=== PATIENT | female | born 2000 | race Caucasian/White ===

== ENCOUNTER → 2021-11-05 10:51 | Outpatient (BNVA) | payer OTHER, SELFPAY | PROVIDERS: PCP Physical Medicine & Rehabilitation; Visit Provider Internal Medicine | DX: Z13.89 Encounter for screening for other disorder (principal) ==

== ENCOUNTER 2021-12-19 06:04 | Outpatient (REF) | payer OTHER, SELFPAY ==
--- NOTE | ~2021-12-19 | FL_ITS ---
EXAMINATION: XR FLUOROSCOPY WITH IMAGES CLINICAL INFORMATION: M47.812 - Spondylosis without myelopathy or radiculopathy COMPARISON: None. TECHNIQUE: Fluoroscopy performed by Dr. Dhruv Moreno. Fluoroscopy time: 0.7 minutes DAP: 0.366 Gycm2 Images: 2 FINDINGS: There are spinal needles overlying the left lateral masses cervical spine approximately C3, C4, C5. There is contrast in the paraspinal soft tissues and nerve sheaths. No visible vascular communication. FL/FL guidance in treatment room IMPRESSION: Fluoroscopy for pain management procedure.
== END 2021-12-19 06:05 | disposition home or self-care (01) ==
LOC: HO.RADIR 06:04
PROVIDERS: Visit Provider Internal Medicine
DX: M47.812 Spondylosis without myelopathy or radiculopathy, cervical region (principal)
CPT/HCPCS: 64490; 64491; J2795; Q9967

== ENCOUNTER → 2021-12-24 08:21 | Outpatient (BNVA) | payer OTHER, SELFPAY | PROVIDERS: PCP Physical Medicine & Rehabilitation; Visit Provider Internal Medicine | DX: Z13.89 Encounter for screening for other disorder (principal) ==

== ENCOUNTER 2022-03-06 10:11 | Day surgery (SDC) | payer MEDICAID, SELFPAY ==
--- NOTE | ~2022-03-06 | FL_ITS ---
EXAMINATION: XR FLUOROSCOPY WITH IMAGES CLINICAL INFORMATION: Facet joint injection COMPARISON: None. TECHNIQUE: Fluoroscopy performed by Dr. Dhruv Moreno. Fluoroscopy time: 1.1 minutes. Cumulative Dose: 10.1 mGy. DAP: 1.12 Gy-cm2. Images: 7. FINDINGS: There are spinal needles overlying the left facet joints of C2-C3, C3-C4, and C4-C5. There is intracapsular contrast demonstrated. No visible vascular communication. FL/FL guidance in OR IMPRESSION: Fluoroscopy for pain management procedures.
[2022-03-06 10:18] VITALS: BP 113/68; PULSE 80; RESP 17; TEMP 36.1; O2SAT 100; BMI 20.1
[2022-03-06 10:34] LABS: UPreg QC Valid YES; Urine Pregnancy NEGATIVE (NEGATIVE)
[2022-03-06] MEDS: Lactated Ringers 1,000 ML 50 ML IVCONT (10:38)
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
--- NOTE | 2022-03-06 12:09 | P.BOP_ITS ---
Brief Operative Note Date of Service: 03/06/22 Pre-op diagnosis: Cervical facet syndrome, left Post-op diagnosis: same Procedure: Left C2/3, C3/4, C4/5 intra-articular corticosteroid injections Surgeon: Dhruv Moreno MD Anesthesia: MAC Was an Gas Regulator Repairer Helper used for this Procedure?: No Estimated blood loss (mL): 1 Pathology: none sent Condition: stable Disposition: PACU
--- NOTE | 2022-03-06 12:09 | P.OP_ITS ---
Operative Note Operative Note Date of Service: 03/06/22 Narrative: Therapeutic Cervical Intra-articular Facet Injections, Left C2/3, C3/C4, C4/5 After obtaining written consent, pre-procedure blood pressure and pulse were recorded and are in the nursing record for review. The patient was placed in a right lateral position and sedated by the senior environmental practice leader. The respective cervical area was prepped with chloraprep and draped in sterile fashion. A 25 gauge 1.5 inch needle was inserted into each of the target joints under fluoroscopic guidance. No paresthesias were elicited with needle placement and aspiration was negative for blood and CSF. Next, 0.2cc of omnipaque 180 was injected to verify intra-articular positioning. No vascular or intrathecal uptrake was noted. Next 0.5 ml 0.5% ropivicaine mixed with 26mg Depo-Medrol was injected (0.5 cc total per level). The skin was cleansed and a sterile bandage was applied. Following the procedure the patient's vital signs were stable. The patient was woken up immediately following the procedure and was conversant. She moved herself off the fluoroscopy table on to the stretcher. The patient tolerated the procedure well and no complications were encountered. Following the procedure the patient's vital signs were stable. The patient was discharged home in good condition with post-procedural instructions. Time Out: Immediately prior to the procedure, the following was verbally confirmed that there is a signed consent form and that the correct patient, planned procedure, site and side are consistent with documentation and that necessary equipment and/or blood products are available prior to the start of the case. Complications: none EBL: <1 cc
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
[2022-03-06 12:53] VITALS: BP 106/59; PULSE 74; RESP 16; TEMP 37.1; O2SAT 100
[2022-03-06 13:08] VITALS: BP 123/78; PULSE 88; RESP 17; TEMP 37.1; O2SAT 100
== END 2022-03-06 13:36 | disposition home or self-care (01) ==
PROVIDERS: Nurse Practitioner; PCP Family Medicine; Visit Provider Internal Medicine
PROC: (CPT 64490; principal; 2022-03-06 12:00)
DX: M47.812 Spondylosis without myelopathy or radiculopathy, cervical region (principal); Z87.828 Personal history of other (healed) physical injury and trauma
CPT/HCPCS: 64490; 64491; 64492; 81025; J1040; J2250

== ENCOUNTER → 2022-05-03 09:30 | Outpatient (BNVA) | payer MEDICAID, SELFPAY | PROVIDERS: PCP Family Medicine; Visit Provider Internal Medicine | DX: Z87.828 Personal history of other (healed) physical injury and trauma (principal); M47.812 Spondylosis without myelopathy or radiculopathy, cervical region | CPT/HCPCS: 99212 ==

== ENCOUNTER 2022-06-05 13:38 | Day surgery (SDC) | payer MEDICAID, SELFPAY ==
[2022-05-30 11:43] VITALS: BMI 20.4
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
[2022-06-05] VITALS (7 sets, daily range): BP systolic 83–123; BP diastolic 49–79; PULSE 70–123; RESP 16–20; TEMP 36.1–37; O2SAT 99–100; BMI 19.7
--- NOTE | ~2022-06-05 | FL_ITS ---
EXAMINATION: XR FLUOROSCOPY WITH IMAGES CLINICAL INFORMATION: RFA C3, C4, and C5 left sided. COMPARISON: 03/06/2022. TECHNIQUE: Fluoroscopy performed by Dr. Dhruv Moreno. Fluoroscopy time: 0.7 minutes. Cumulative Dose: 6.39 mGy. DAP: 0.523 Gycm2. Images: 6. FINDINGS: C-arm images demonstrate needles/probes adjacent to what is stated to be the C3, C4, and C5 left facet. Films are not marked left or right. FL/FL guidance in OR IMPRESSION: Intraoperative fluoroscopy performed for pain management procedure.
[2022-06-05 14:22] LABS: UPreg QC Valid YES; Urine Pregnancy NEGATIVE (NEGATIVE)
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
--- NOTE | 2022-06-05 16:49 | PM.OP ---
Brief Operative Note Date of Service: 06/05/22 Pre-op diagnosis: Cervical facet syndrome Post-op diagnosis: same Procedure: C3, C4, C5 medial branch radiofrequency ablation Implants: none Surgeon: Dhruv Moreno MD Anesthesia: MAC Was an Free Lance Artist used for this Procedure?: No Estimated blood loss (mL): 1 Pathology: none sent Condition: stable Disposition: PACU
--- NOTE | 2022-06-05 16:50 | W.PM.OPN ---
Operative Note Operative Note Date of Service: 06/05/22 Narrative: Radiofrequency lesioning cervical medial branch nerves, Left C3, C4 and C5 After obtaining written consent, pre-procedure blood pressure and heart rate were stable and recorded in the nursing record. The patient was placed in the prone position and sedated by the black ash burner operator. The?cervical?area was prepped with chloraprep and draped in sterile fashion. The skin over the target for each medial branch nerve was anesthetized with 0.75% lidocaine. An 18 gauge radiofrequency cannula was advanced to each target site under fluoroscopic guidance. No paresthesias were elicited with needle placement and aspiration was negative for heme and CSF. Impedences were verified under 600 ohms. Motor testing (2 Hz) confirmed needle placement at each site within the appropriate voltage thresholds. Each site was injected with 1 ml 2% preservative-free lidocaine. Radiofrequency lesioning was performed for 90 seconds at 80 deg Celcius. The needle was removed, skin cleansed and a sterile bandage was applied. The patient tolerated the procedure well and no complications were encountered. Following the procedure the patient's vital signs were stable. the patient complained of pain in the PACU that was treated by the anesthesia team. Neurologic exam in the left upper extremity was reassuring with preserved 5/5 strength and hand typists supervisor; the patient denied any unusual paresthesia in the left upper extremity. The patient was discharged home in good condition with post-procedural instructions. Time Out: Immediately prior to the procedure, the following was verbally confirmed that there is a signed consent form and that the correct patient, planned procedure, site and side are consistent with documentation and that necessary equipment and/or blood products are available prior to the start of the case. Complications: none EBL: <2 cc
[2022-06-05] MEDS: Ketorolac Tromethamine 15 MG/ML VIAL IVPUSH (17:02)
[2022-06-05] MEDS: oxyCODONE HCl Immed Release 5 MG TABLET PO (17:24)
[2022-06-05] MEDS: ondansetron HCL 4 MG/2 ML VIAL IVPUSH (18:26)
== END 2022-06-05 17:49 | disposition home or self-care (01) ==
PROVIDERS: Nurse Practitioner; PCP Family Medicine; Visit Provider Internal Medicine
PROC: (CPT 64633; principal; 2022-06-05 14:50)
DX: M47.812 Spondylosis without myelopathy or radiculopathy, cervical region (principal); M53.82 Other specified dorsopathies, cervical region; Z87.828 Personal history of other (healed) physical injury and trauma; M53.3 Sacrococcygeal disorders, not elsewhere classified; M43.28 Fusion of spine, sacral and sacrococcygeal region; F90.9 Attention-deficit hyperactivity disorder, unspecified type; Z79.899 Other long term (current) drug therapy
CPT/HCPCS: 64633; 64634; 81025; J0131; J1885; J2250; J2405; J3010

== ENCOUNTER → 2022-07-29 07:59 | Outpatient (BNVA) | payer MEDICAID, SELFPAY | PROVIDERS: PCP Family Medicine; Visit Provider Internal Medicine | DX: M47.812 Spondylosis without myelopathy or radiculopathy, cervical region (principal); R52 Pain, unspecified | CPT/HCPCS: 99212 ==